=== PATIENT | female | born 1970 | race Caucasian/White ===

== ENCOUNTER 2017-11-27 02:52 | Emergency (ER) | payer BC ==
[~2017-11-27] VITALS: Ht 172.7 cm; Wt 70.0 kg
[~2017-11-27 02:52] MED LIST: IBUP-1985 PO; MECL25TA3 PO; ONDA4TAB6 PO
[2017-11-27] MEDS ORDERED: morphine 4 MG/ML inj SYRINge IM ONE (06:40)
[2017-11-27] MEDS ORDERED: ondansetron 4mg rapidly disintigrating tab PO ONE (06:55)
[2017-11-27] MEDS ORDERED: AZIT-63 PO (07:28)
[2017-11-27] MEDS ORDERED: ibuprofen tablet 400 MG TABLET PO ONE (07:35)
[2017-11-27 07:51] VITALS: BP 128/67
[2017-11-28] MEDS ORDERED: pantoprazole 40mg Tablet.DR PO ONE (07:30)
== END 2017-11-27 07:53 | disposition home or self-care (01) ==
LOC: ER 02:52
DX: R07.89 Other chest pain (principal); F17.200 Nicotine dependence, unspecified, uncomplicated; Z88.2 Allergy status to sulfonamides; Z88.8 Allergy status to other drugs, medicaments and biological substances; Z79.2 Long term (current) use of antibiotics
CPT/HCPCS: 71046; 93005; 96372; 99284; J2270

== ENCOUNTER 2018-09-08 01:14 | Emergency (ER) | payer BC ==
[~2018-09-08] VITALS: Ht 172.7 cm; Wt 69.7 kg
[2018-09-08 01:37] LABS: URINE HCG NEGATIVE (NEG)
[2018-09-08 01:54] LABS: CLARITY,URINE CLEAR (Clear); COLOR,URINE YELLOW (Yellow); GLUCOSE, URINE NEGATIVE (Neg); KETONES,URINE NEGATIVE (Neg); LEUKOCYTE ESTERASE ,URINE NEGATIVE (Neg); NITRITES, URINE NEGATIVE (Neg); OCCULT BLOOD,URINE NEGATIVE (Neg); PROTEIN,URINE NEGATIVE (Neg); UROBILINOGEN,URINE 0.2 E.U/dL (0.2-1.0)
[2018-09-08 01:55] LABS: UA COLLECTION TYPE CLN CATCH MIDSTREAM
[2018-09-08 02:06] LABS: ALANINE AMINOTRANSFERASE 19 U/L (12-78); ALBUMIN 3.5 G/DL (3.4-5.0); ALKALINE PHOSPHATASE 66 IU/L (46-116); ANION GAP 7 (8-16); ASPARTATE AMINO TRANSFERASE 10 U/L (10-37); BILIRUBIN,TOTAL 0.5 MG/DL (0.1-1.0); BLOOD UREA NITROGEN 15 MG/DL (7-18); CALCIUM 8.7 MG/DL (8.5-10.1); CHLORIDE 101 MMOL/L (99-107); CREATININE 0.88 MG/DL (0.40-0.90); GLUCOSE 98 MG/DL (70-104); POTASSIUM 3.4 MMOL/L (3.5-5.1); SODIUM 137 MMOL/L (135-145); TOTAL CARBON DIOXIDE 29.1 MMOL/L (24-32); eGFR 69 ML/MIN
[2018-09-08 02:09] LABS: BASOPHILS % (AUTO) 0.4 % (0-1); EOSINOPHILS % (AUTO) 0.6 % (0-6); HEMATOCRIT 38.7 % (35.0-45.0); HEMOGLOBIN 13.2 g/dl (12.0-16.0); LYMPHOCYTES # (AUTO) 1.9 X10'3 (1.1-4.8); LYMPHOCYTES % (AUTO) 24.1 % (21-51); MEAN CORPUSCULAR HEMOGLOBIN 30.1 PG (27.0-31.0); MEAN CORPUSCULAR HGB CONC 34.1 g/dL (33.0-36.5); MEAN CORPUSCULAR VOLUME 88.2 FL (78-98); MONOCYTES # (AUTO) 0.5 X10'3 (0-0.9); MONOCYTES % (AUTO) 6.3 % (2-12); NEUTROPHILS # (AUTO) 5.5 X10'3 (1.8-7.7); NEUTROPHILS % (AUTO) 68.6 % (42-75); PLATELET COUNT 226 X10'3 (140-440); RED BLOOD COUNT 4.39 X10'6 (4.20-5.60); RED CELL DISTRIBUTION WIDTH 12.9 % (11.5-14.5)
[2018-09-08] MEDS ORDERED: HYDROcodone/acetaminophen 5mg/325mg tablet PO ONE (02:35)
[2018-09-08] MEDS ORDERED: ondansetron 4mg rapidly disintigrating tab PO ONE (02:35)
--- NOTE | 2018-09-08 04:55 | NUR ---
Pt caregiver called and notified that Pt is being discharged and ready to go home. Caregiver said somebody was on [email or web address] way.
[2018-09-08 07:11] VITALS: BP 117/74
== END 2018-09-08 07:05 | disposition home or self-care (01) ==
LOC: ER 01:14
DX: N83.202 Unspecified ovarian cyst, left side (principal); K76.89 Other specified diseases of liver; D35.01 Benign neoplasm of right adrenal gland; R19.03 Right lower quadrant abdominal swelling, mass and lump; I49.9 Cardiac arrhythmia, unspecified; I38 Endocarditis, valve unspecified; Z98.890 Other specified postprocedural states; Z88.2 Allergy status to sulfonamides; Z79.899 Other long term (current) drug therapy
CPT/HCPCS: 36415; 74176; 76830; 76856; 80053; 81003; 81025; 85025; 85610; 99284; J2405

== ENCOUNTER 2018-09-15 13:40 | Emergency (ER) | payer BC ==
[~2018-09-15] VITALS: Ht 172.7 cm; Wt 66.0 kg
[2018-09-15 14:12] LABS: BASOPHILS % (AUTO) 0.7 % (0-1); EOSINOPHILS # (AUTO) 0.2 X10'3 (0-0.9); EOSINOPHILS % (AUTO) 2.5 % (0-6); HEMATOCRIT 42.2 % (35.0-45.0); HEMOGLOBIN 14.2 g/dl (12.0-16.0); LYMPHOCYTES # (AUTO) 0.9 X10'3 (1.1-4.8); LYMPHOCYTES % (AUTO) 13.4 % (21-51); MEAN CORPUSCULAR HEMOGLOBIN 29.4 PG (27.0-31.0); MEAN CORPUSCULAR HGB CONC 33.5 g/dL (33.0-36.5); MEAN CORPUSCULAR VOLUME 87.7 FL (78-98); MEAN PLATELET VOLUME 8.6 FL (7.4-10.4); MONOCYTES # (AUTO) 0.4 X10'3 (0-0.9); MONOCYTES % (AUTO) 5.9 % (2-12); NEUTROPHILS # (AUTO) 5.3 X10'3 (1.8-7.7); NEUTROPHILS % (AUTO) 77.5 % (42-75); PLATELET COUNT 208 X10'3 (140-440); RED BLOOD COUNT 4.81 X10'6 (4.20-5.60); WHITE BLOOD COUNT 6.9 X10'3 (4.5-11.0)
[2018-09-15 14:29] LABS: ALANINE AMINOTRANSFERASE 41 U/L (12-78); ALBUMIN 3.4 G/DL (3.4-5.0); ALBUMIN/GLOBULIN RATIO 0.9 (1.1-1.5); ALKALINE PHOSPHATASE 61 IU/L (46-116); ANION GAP 7 (8-16); ASPARTATE AMINO TRANSFERASE 33 U/L (10-37); BILIRUBIN,TOTAL 0.5 MG/DL (0.1-1.0); BLOOD UREA NITROGEN 12 MG/DL (7-18); BUN/CREATININE RATIO 13.2 (6.6-38.0); CALCIUM 8.8 MG/DL (8.5-10.1); CHLORIDE 104 MMOL/L (99-107); CREATININE 0.91 MG/DL (0.40-0.90); GLUCOSE 128 MG/DL (70-104); POTASSIUM 3.8 MMOL/L (3.5-5.1); SODIUM 139 MMOL/L (135-145); TOTAL PROTEIN 7.1 G/DL (6.4-8.2); eGFR 67 ML/MIN
[2018-09-15] MEDS ORDERED: ketorolac tromethamine 15mg/ml inj. IM ONE (15:40)
[2018-09-15 15:46] LABS: CLARITY,URINE CLEAR (Clear); COLOR,URINE YELLOW (Yellow); GLUCOSE, URINE NEGATIVE (Neg); KETONES,URINE NEGATIVE (Neg); LEUKOCYTE ESTERASE ,URINE NEGATIVE (Neg); NITRITES, URINE NEGATIVE (Neg); OCCULT BLOOD,URINE NEGATIVE (Neg); PH,URINE 6.5 (4.8-8.0); PROTEIN,URINE NEGATIVE (Neg); URINE HCG NEGATIVE (NEG); UROBILINOGEN,URINE 0.2 E.U/dL (0.2-1.0)
[2018-09-15 15:51] LABS: UA COLLECTION TYPE CLN CATCH MIDSTREAM
[2018-09-15] MEDS ORDERED: ketorolac tromethamine 15mg/ml inj. IV ONE (16:25)
[2018-09-15] MEDS ORDERED: iohexol 300mg/ml 100ml inj. ONE (16:40)
[2018-09-15 18:30] VITALS: BP 132/72
== END 2018-09-15 18:31 | disposition home or self-care (01) ==
LOC: ER 13:41
DX: R10.31 Right lower quadrant pain (principal); R10.32 Left lower quadrant pain; Z98.890 Other specified postprocedural states; Z88.2 Allergy status to sulfonamides; Z88.8 Allergy status to other drugs, medicaments and biological substances; Z79.899 Other long term (current) drug therapy
CPT/HCPCS: 36415; 74177; 80053; 81003; 81025; 85025; 96374; 99284; J1885; Q9967